=== PATIENT | female | born 1980 | race Caucasian/White ===

== ENCOUNTER 2023-04-17 13:53 | Outpatient (CLI) | payer OTHER ==
--- NOTE | 2023-04-18 09:18 | Mammography Report ---
BILATERAL DIGITAL SCREENING MAMMOGRAM 3D/2D WITH EXAGGERATED CC: 04/17/2023 CLINICAL: Routine screening. Comparison is made to exam dated: 06/07/2021 ultrasound - Outside facility. Both breasts are extremely dense, which lowers the sensitivity of mammography (category d />75% gland ular tissue). There is possible architectural distortion in the right breast anterior depth central to the nipple s een on the craniocaudal view only. Finding is seen only on tomography. No other significant masses, calcifications, or other findings are seen in either breast. IMPRESSION: INCOMPLETE: NEEDS ADDITIONAL IMAGING EVALUATION The possible architectural distortion in the right breast is indeterminate. Additional views with possible ultrasound are recommended. Based on the Tyrer Cuzick model (a risk assessment model) the patient's lifetime risk is 18.1% and he r 10 year risk is 3.1%. According to the ACR, ACS, and NCCN guidelines, an annual breast MRI exam ayde ng with mammogram is recommended if the patients lifetime risk is 20% or greater. This exam was interpreted at Station ID: [id number]. NOTE: For mammograms, a report in lay terms will be sent to the patient. Approximately 15% of breast malignancies will not be visualized mammographically. In the management of a palpable breast mass, a negative mammogram must not discourage biopsy of a clinically suspicious lesion. Electronically Signed By: Suleman Vizcarra M.D. slc/:04/17/2023 21:08:13 ACR BI-RADS Category 0: Incomplete 3340F PARENCHYMAL PATTERN: (VD) - The breast(s) demonstrate(s) extremely dense parenchyma, limiting the sen sitivity of mammography. BI-RADS CATEGORY: (0) - 0 Mammo and [place] [id number] Immediate follow-up LATERALITY: (B)
== END 2023-04-17 13:54 | disposition home or self-care (01) ==
LOC: DI.S 13:53
PROVIDERS: ATTEND Obstetrics & Gynecology
DX: Z12.31 Encounter for screening mammogram for malignant neoplasm of breast (principal); R92.343 Mammographic extreme density, bilateral breasts; R92.8 Other abnormal and inconclusive findings on diagnostic imaging of breast

== ENCOUNTER 2023-06-14 12:36 | Outpatient (CLI) | payer OTHER ==
--- NOTE | 2023-06-16 13:31 | Ultrasound Report ---
. Reviewed by: America Alcala MD on 06/16/2023 1:29 PM PDT Approved by: America Alcala MD on 06/16/2023 1:29 PM PDT Station ID: [id number]
--- NOTE | 2023-06-17 09:25 | Mammography Report ---
UNILATERAL RIGHT DIGITAL DIAGNOSTIC MAMMOGRAM 3D/2D WITH SPOT COMPRESSION: 06/14/2023 CLINICAL: Patient returns today to evaluate an architectural distortion in the right breast. Comparison is made to exam dated: 04/17/2023 mammogram - [facility]. The right breast is extremely dense, which lowers the sensitivity of mammography (category d />75% gl andular tissue). There is possible architectural distortion in the right breast at 12 o'clock middle depth. This is se en on additional views. No other significant masses or calcifications are seen in the breast. IMPRESSION: INCOMPLETE: NEEDS ADDITIONAL IMAGING EVALUATION The possible architectural distortion in the right breast is indeterminate. A targeted ultrasound of the right breast is recommended and will be performed immediately following this exam. Based on the Tyrer Cuzick model (a risk assessment model) the patient's lifetime risk is 18.1% and he r 10 year risk is 3.1%. According to the ACR, ACS, and NCCN guidelines, an annual breast MRI exam ayde ng with mammogram is recommended if the patient's lifetime risk is 20% or greater. This exam was interpreted at Station ID: [id number]. NOTE: For mammograms, a report in lay terms will be sent to the patient. Approximately 15% of breast malignancies will not be visualized mammographically. In the management of a palpable breast mass, a negative mammogram must not discourage biopsy of a clinically suspicious lesion. Electronically Signed By: America Alcala M.D. lk/:06/14/2023 13:18:21 ACR BI-RADS Category 0: Incomplete 3340F PARENCHYMAL PATTERN: (VD) - The breast(s) demonstrate(s) extremely dense parenchyma, limiting the sen sitivity of mammography. BI-RADS CATEGORY: (0) - 0 Ultrasound [id number] Immediate follow-up LATERALITY: (B)
== END 2023-06-14 12:37 | disposition home or self-care (01) ==
LOC: DI 12:36
PROVIDERS: ATTEND Obstetrics & Gynecology
DX: R92.8 Other abnormal and inconclusive findings on diagnostic imaging of breast (principal); R92.341 Mammographic extreme density, right breast

== ENCOUNTER 2023-09-05 12:40 | Outpatient (CLI) | payer OTHER ==
[~2023-09-05 12:40] MED LIST: GADOTERATE MEGLUMINE 7.5 MMOL/15 ML VIAL ONE
[2023-09-05] MEDS: GADOTERATE MEGLUMINE 7.5 MMOL/15 ML VIAL IVP ONE (13:31)
--- NOTE | 2023-09-06 10:56 | MRI Report ---
BREAST MRI OF BOTH BREASTS: 09/05/2023 PROCEDURE: Breast BL W/WO INDICATIONS: ABN RIGHT MAMMOGRAM CONTRAST: CLARISCAN 13.6 ML TECHNIQUE: The patient was placed prone in a dedicated breast imaging coil. Precontrast axial STIR and 3D spoil ed GE without fat saturation sequences were obtained. Both before and after bolus injection of contr ast, sequential 1-minute axial 3D spoiled GE with fat saturation sequences for 3 time points, with rojas btraction images and maximum intensity projections (MIP's) generated. Delayed sagittal spoiled GE im ages with fat saturation were also obtained. Computer-aided detection, including computer algorithm analysis of MRI image data for lesion detectio n and characterization, pharmacokinetic analysis, with further physician review for interpretation, w as performed. COMPARISON: Comparison is made to exams dated: 06/14/2023 ultrasound, 06/14/2023 mammogram, 04/17/2023 mammogram - [facility], and 06/07/2021 ultrasound - Outside facility. FINDINGS: Image quality: Excellent. There is mild background parenchymal enhancement. Right breast: Several small T2 hyperintense cysts. No mass or suspicious enhancement. Left breast: Several small T2 hyperintense cysts. No mass or suspicious enhancement. Miscellaneous: No enlarged lymph nodes. IMPRESSION: BENIGN No mass or suspicious enhancement. BIRADS 2 A 1 year screening mammogram is recommended. COMMENT: The imaging literature indicates that a negative contrast breast MRI examination has a high sensitivity and a moderate specificity for detecting and excluding invasive carcinomas to a detection threshold of 3-5 mm; nonetheless, appropriate clinical and mammographic follow-up are recommended. MRI is not sensitive for detecting DCIS (ductal carcinoma in situ) and may not detect large invasive neoplasms that show only minimal enhancement such as mucinous carcinoma. If there are suspicious abril cifications or clinically worrisome palpable masses, then biopsy should still be considered. Invasiv e neoplasms can be hidden by co-existent and benign enhancement caused by mastitis, hormone therapy e ffects, radiation therapy, , and recent biopsy or surgery. False positive examinations can occur in a number of circumstances, including breasts that have recently been subject to invasive pro cedures and those that contain atypical ductal hyperplasia, hormonally stimulated glandular tissue, f at necrosis, or radial scars. This exam was interpreted at Station ID: [id number]. Electronically Signed By: Suleman Vizcarra M.D. slc/:09/05/2023 20:59:51 ACR BI-RADS Category 2: Benign Finding(s) 3342F BI-RADS CATEGORY: (2) - 2 RECOMMENDATION: (ANNUAL) - Recommend routine annual screening mammography. [id number] 1 year screening LATERALITY: (B)
== END 2023-09-05 12:41 | disposition home or self-care (01) ==
LOC: DI 12:40
PROVIDERS: ATTEND Obstetrics & Gynecology
DX: R92.8 Other abnormal and inconclusive findings on diagnostic imaging of breast (principal)